=== PATIENT | female | born 1940 | race African-American/Black ===

== ENCOUNTER → 2016-12-03 | Day surgery (SDC) | payer OTHER ==
[~2016-12-03] MED LIST: ADVIL200 M2 PO; ALBUTEROL MININEB NEB; ALBUTEROL17 GM INH; ASPIRIN EC81 M1 PO; ASPIRIN FREE325 MG PO; ASPIRIN81 MG PO; BAYER CHEWABLE81 MG PO; CELEXA PO; CELEXA20 MG PO; CLOPIDOGREL75 MG PO; DSS100 MG PO; FENOFIBRATE145 M1 PO; FENOFIBRATE145 MG PO; FERREX 150 PLU1 EACH PO; FERRO-TIME325 MG PO; GLUCOTROL PO; JANUVIA PO; KEPPRA500 M1 PO; LASIX20 MG PO; LEVAQUIN750 M1 PO; LEVOTHYROXINE50 MC1 PO; LEVOTHYROXINE50 MCG PO; LISINOPRIL-HCTZ1 T19 PO; LISINOPRIL5 MG PO; METOPROLOL SUCC25 MG PO; PLAVIX PO; PREDNISONE10 MG/DOSE PO; PRINIVIL5 MG PO; PROTONIX PO; SIMVASTATIN40 MG PO; SPIRIVA18 MCG INH; SYMBICORT INH; TOPROL XL PO; TRICOR145 MG PO; VITAMIN D250000 UNIT PO; VITAMIN D50000 UNIT PO; ZESTRIL5 MG PO
--- NOTE | ~2016-12-03 | OR ---
Unit #: [id number] #: [id number] Patient: HEAVEN MOLINA [id number] [address] [address] [id number] MR#: [id number] NAME: HEAVEN MOLINA. ROOM: Date of Procedure: 12/03/2016 Admission Date: 12/03/2016 Surgeon: Deon Chisholm M.D. : 1940 Attending Physician: Deon Chisholm M.D. Primary Care Physician: Teo Verdugo M.D. OPERATIVE REPORT PROCEDURE PERFORMED Esophagogastroduodenoscopy with biopsy. INDICATIONS FOR PROCEDURE History of large gastric ulcer, undergoing evaluation to make sure ulcer healing and ruling out malignancy. MEDICATIONS Monitored anesthesia. POSTOPERATIVE FINDINGS 1. Chronic-appearing gastritis, biopsies taken. Previously documented ulcer has completely resolved. 2. Normal duodenum and distal duodenum. 3. Large hiatal hernia and esophageal ring that was nonobstructing at this time. PLAN Continue joint terminal attack controller PPI therapy and reflux precautions. DESCRIPTION OF PROCEDURE The patient was explained of the procedure, risks, and benefits along with risks and benefits of anesthesia. She was brought to the endoscopy room. Propofol anesthesia was given. Bite block was placed. The scope was passed down the mouth and esophagus, stomach, duodenum, and distal duodenum. Findings as described. Biopsies taken. Gently, I pulled it out of the patient's mouth, she tolerated it well. Dictated by... Anali cMcord/cheyenne TD: 12/04/2016 00:57 JOB #: [id number] Unit #: [id number] #: [id number] Patient: HEAVEN MOLINA OPERATIVE REPORT Page 1 of 1 X Deon Chisholm MD X PROCEDURE OPERATIVE NOTE
== END | disposition home or self-care (01) ==
LOC: COPS 07:04
DX: K29.50 Unspecified chronic gastritis without bleeding (principal); K22.2 Esophageal obstruction; K44.9 Diaphragmatic hernia without obstruction or gangrene; I10 Essential (primary) hypertension; E11.9 Type 2 diabetes mellitus without complications; J45.909 Unspecified asthma, uncomplicated; Z91.041 Radiographic dye allergy status; Z79.899 Other long term (current) drug therapy; Z90.49 Acquired absence of other specified parts of digestive tract; Z96.652 Presence of left artificial knee joint; Z98.51 Tubal ligation status; Z98.890 Other specified postprocedural states
CPT/HCPCS: 82947; 88305; 88312